=== PATIENT | female | born 1945 ===

== ENCOUNTER 2018-06-04 07:29 | Emergency (ER) | payer OTHER ==
[~2018-06-04] VITALS: Ht 162.6 cm; Wt 61.2 kg
[~2018-06-04 07:29] MED LIST: Invanz IV; MYRBETRIQ50 MG; ZEBUTAL 50-3251 EACH
== END 2018-06-04 14:54 | disposition home or self-care (01) ==
LOC: ER 07:29
DX: K29.60 Other gastritis without bleeding (principal); J40 Bronchitis, not specified as acute or chronic

== ENCOUNTER 2018-12-11 15:50 | Emergency (ER) | payer OTHER ==
[~2018-12-11] VITALS: Ht 172.7 cm; Wt 74.8 kg
== END 2018-12-11 18:20 | disposition home or self-care (01) ==
LOC: ER 15:50
DX: S60.572A Other superficial bite of hand of left hand, initial encounter (principal); W53.81XA Bitten by other rodent, initial encounter; Y93.89 Activity, other specified; Y92.018 Other place in single-family (private) house as the place of occurrence of the external cause; Y99.8 Other external cause status

== ENCOUNTER 2019-06-27 21:00 | Emergency (ER) | payer OTHER ==
[~2019-06-27] VITALS: Ht 165.1 cm; Wt 59.0 kg
[2019-06-27] MEDS ORDERED: ADVAIR HFA 230/12 GM IH (21:24)
[2019-06-27] MEDS ORDERED: XANAX XR0.5 MG PO (21:24)
[2019-06-27] MEDS ORDERED: ZEBETA PO (21:26)
[2019-06-28] MEDS ORDERED: DELTASONE20 MG PO ×2 (03:24→03:25)
[2019-06-28] MEDS ORDERED: PROMETH-CODEIN 65 ML PO ×2 (03:25)
== END 2019-06-28 03:52 | disposition home or self-care (01) ==
LOC: ER 21:00
DX: J45.998 Other asthma (principal)

== ENCOUNTER 2019-07-16 14:29 | Emergency (ER) | payer OTHER ==
[~2019-07-16] VITALS: Ht 165.1 cm; Wt 58.1 kg
[~2019-07-16 14:29] MED LIST changes: +ADVAIR HFA 230/12 GM IH; +DELTASONE20 MG PO; +PROMETH-CODEIN 65 ML PO; +XANAX XR0.5 MG PO; +ZEBETA PO
[2019-07-16] MEDS ORDERED: DILTIAZEM ER120 M2 (14:43)
== END 2019-07-16 17:13 | disposition home or self-care (01) ==
LOC: ER 14:29
DX: F41.0 Panic disorder [episodic paroxysmal anxiety] (principal)

== ENCOUNTER 2019-09-15 10:00 | Day surgery (SDC) | payer OTHER ==
[~2019-09-15 10:00] MED LIST changes: +DILTIAZEM ER120 M2
== END 2019-09-15 14:40 | disposition home or self-care (01) ==
LOC: AMB-ENDOS 10:00
DX: K57.32 Diverticulitis of large intestine without perforation or abscess without bleeding (principal); K62.4 Stenosis of anus and rectum

== ENCOUNTER 2025-06-19 10:37 | Outpatient (CLI) | payer OTHER | END 2025-06-19 10:44 | disposition home or self-care (01) | LOC: TOM 10:37 | PROVIDERS: ATTEND Surgery | DX: K64.8 Other hemorrhoids (principal); K57.30 Diverticulosis of large intestine without perforation or abscess without bleeding; Z86.0100 Personal history of colon polyps, unspecified; K57.32 Diverticulitis of large intestine without perforation or abscess without bleeding | CPT/HCPCS: 74177; Q9965 ==